=== PATIENT | female | born 1935 | race Caucasian/White ===

== ENCOUNTER 2017-05-27 11:48 | Day surgery (SDC) | payer OTHER, MEDICARE ==
--- NOTE | 2017-05-27 06:18 | PDGENHP ---
History and Physical History and Physical: Assessment and Plan: 1. Urinary incontinence - AMBULATORY REFERRAL TO OBSTETRICS / GYNECOLOGY 2. Genuine stress incontinence, female Colette has straightforward stress urinary incontinence. She leaks quite easily. As a result I would recommend a retropubic sling. 3. Cystocele, lateral Her prolapse is asymptomatic. We will observe things. Subjective: Patient ID: Colette Mayberry is a 81 y.o. female who presents to [facility] for incontinence. HPI Colette is an 81-year-old para 4 woman kindly referred by Awilda Munoz PA-C for urinary incontinence. This has been present for approximately 4 years. She leaks very easily. She leaks with minimal movements and most activities. She also has some urgency. She was told she also has a rectocele. She previously saw Dr. Valdes who thought she had uterine prolapse. They discussed surgical options. Additionally she has noticed a slower urine stream. She has tried pelvic floor strengthening exercises which was not beneficial. PastMedicalHistory Past Medical History: Diagnosis Date Neurologic disorder Urinary tract infection PastSurgicalHistory Past Surgical History: Procedure Laterality Date EYE SURGERY CURRENT MEDICATIONS: Current Outpatient Prescriptions Medication Sig carbidopa-levodopa 25-100 mg per tablet TK 1 T PO TID No current facility-administered medications for this visit. ALLERGIES: Review of patient's allergies indicates not on file. I have reviewed, verified and agree with the past medical, surgical, , family, social and ROS history as documented by the RN today. Objective: Vital Signs: Visit Vitals Pulse 74 Ht 1.62 m (5' 3.78") Wt 53.1 kg (117 lb) SpO2 97% BMI 20.22 kg/m Physical Exam Gen: This is an alert, well developed woman in no distress. Neuro: She moves all extremities. Psych: She is appropriate, oriented, with normal affect. Neck: No thyroid enlargement, adenopathy, or tenderness. Lungs: Clear to ascultation, no wheezes or rales. Heart: Regular rate and rhythm without obvious murmurs. Abdomen: Soft, non-tender, without guarding, rebound, or masses. Extremities: No edema or cyanosis. Pelvic: Normal external genitalia. Cervix without lesions or discharge. Uterus normal sized, mobile, non-tender. Adnexa non-tender without enlargement. The vagina is atrophic. The introitus is gaping especially posteriorly. She has a second almost third-degree cystocele as well as rectocele. The urethra is mobile. She has urine leakage with minimal Valsalva. DATA: I have reviewed the pertinent medical records. TIME/COMMUNICATION: I personally spent a total of 40 minutes. Of that 30 minutes was counseling/ coordination of patient's care. See my note above for details. Ozzie Narayanan MD Board Certified Female Pelvic Medicine and Reconstructive Surgery Director of Minimally Invasive Gynecologic Surgery, [facility] Surgeon in Minimally Invasive Gynecologic Surgery [facility] Surgeon in Robotic Surgery
--- NOTE | 2017-05-27 12:28 | PDANEPAE ---
ANE History of Present Illness 81 yo female with stress incontinence for vaginal sling. ANE Past Medical History - Cardiovascular History Hx Hypertension: No Hx Arrhythmias: No Hx Chest Pain: No Hx Coronary Artery / Peripheral Vascular Disease: No Hx CHF / Valvular Disease: No Hx Palpitations: No - Pulmonary History Hx COPD: No Hx Asthma/Reactive Airway Disease: No Hx Recent Upper Respiratory Infection: No Hx Oxygen in Use at Home: No Hx Sleep Apnea: No Sleep Apnea Screening Result - Last Documented: Negative - Neurologic History Hx Cerebrovascular Accident: Yes Hx Seizures: No Hx Dementia: No Neurologic History Comment: TIA 2007 - no residual deficits. - Endocrine History Hx Diabetes: No Hypothyroid: No Obesity: no - Renal History Hx Renal Disorders: Yes Renal History Comment: stress incontinence. hx of uti's - Liver History Hx Hepatic Disorders: No - Neurological & Psychiatric Hx Hx Neurological and Psychiatric Disorders: No - Cancer History Hx Cancer: No - Congenital Disorder History Hx Congenital Disorders: No - GI History GERD: mild Hx Gastrointestinal Disorders: No Gastrointestinal History Comment: dependent on food consumed - Other Health History Other Health History: wears glasses. [place]- no aides yet. arthritis - Chronic Pain History Chronic Pain: No (generalized arthritic pain) - Surgical History Prior Surgeries: yag laser with [place]. previous corneal surgery in [place] ANE Review of Systems Review of systems is: negative Review of Systems: - Exercise capacity METS (RN): 4 METS ANE Patient History - Allergies Allergies/Adverse Reactions: No Known Allergies Allergy (Verified 05/06/17 16:41) - Home Medications Home Medications: Carbidopa/Levodopa 05/06/17 [Last Taken Unknown] Herbals/Supplements -Info Only 05/06/17 [Last Taken Unknown] - NPO status NPO Since - Liquids (Date): 05/27/17 NPO Since - Liquids (Time): 06:00 (water with meds) NPO Since - Solids (Date): 05/26/17 - Anes Hx Anes Hx: no prior problems - Smoking Hx Smoking Status: Former smoker - Alcohol Use Alcohol Use: Rarely - Family Anes Hx Family Anes Hx: neg - N/A Family Hx Anesthesia Complications: none ANE Labs/Vital Signs - Vital Signs Vital Signs: reviewed preoperatively; see RN documention for details Height: 162 cm Weight: 53.1 kg ANE Physical Exam - Airway Mallampati Score: Class 2 Mouth exam: small mouth opening - Pulmonary Pulmonary: clear to auscultation - Cardiovascular Cardiovascular: regular rate and rhythym - ASA Status ASA Status: II ANE Anesthesia Plan Anesthesia Plan: GA w LMA
--- NOTE | 2017-05-27 12:33 | PDHPUP ---
History & Physical Update H&P update statement: This history and physical update is based on an assessment of the patient which was completed after admission or registration (within 24 hours), but prior to the surgery/procedure. H&P update: H&P reviewed & patient examined, no change in patient's condition since H&P completed
[2017-05-27] MEDS ORDERED: BUPIVACAINE/EPI 0.5% 30 ML SDV ONE (12:39)
[2017-05-27] MEDS ORDERED: LIDOCAINE 2% 5 ML SDV ONE (12:44)
[2017-05-27] MEDS ORDERED: DEXAMETHASONE 4 MG/ML VIAL ONE (12:44)
[2017-05-27] MEDS ORDERED: PROPOFOL 200 MG/20 ML VIAL ONE (12:45)
[2017-05-27] MEDS ORDERED: ceFAZolin 2 GM/SWFI 20 ML SYR IVP ONE (12:45)
[2017-05-27] MEDS ORDERED: ceFAZolin 2 GM/SWFI 2 GM/20 ML SYR IVP ONE (12:45)
[2017-05-27] MEDS ORDERED: fentaNYL 100 MCG/2 ML INJ ONE (12:45)
[2017-05-27 13:02] VITALS: PULSE 71
[2017-05-27] MEDS ORDERED: LIDOCAINE 1% 2 ML INJ ID PRN (13:03)
[2017-05-27] MEDS ORDERED: LR 1,000 ML IV ONE (13:03)
[2017-05-27] MEDS ORDERED: NALOXONE HCL 0.4 MG/ML INJ IVP PRN (13:23)
[2017-05-27] MEDS ORDERED: HYDROCODONE/APAP 5/325 TAB PO PRN (13:23)
[2017-05-27] MEDS ORDERED: ACETAMINOPHEN 500 MG TAB PO PRN (13:23)
[2017-05-27] MEDS ORDERED: LR 500 ML IV PRN (13:23)
[2017-05-27] MEDS ORDERED: ONDANSETRON 4 MG/2 ML VIAL IVP PRN (13:23)
[2017-05-27] MEDS ORDERED: fentaNYL 100 MCG/2 ML INJ IVP PRN (13:23)
--- NOTE | 2017-05-27 13:33 | POSTOPPROG ---
Post Op Note Date of Operation: 05/27/17 Surgeon: Ozzie Narayanan Inside Plant Supervisor: none Anesthesiologist: urvashi Anesthesia: GET(General Endotracheal) Pre-op Diagnosis: stress incontinence Post-op Diagnosis: same Procedure: retropubic sling Findings: no bladder or urethral injury Inf/Abcess present in the surg proc area at time of surgery?: No EBL: Minimal Complications: none
--- NOTE | 2017-05-27 13:37 | POSTANESTH ---
Post Anesthetic Evaluation Cardiovascular Status: Normal, Stable Respiratory Status: Normal, Stable Level of Consciousness/Mental Status: Can Participate in Eval, Mildly Sleepy, Arousable Pain Control: Adequate, Prn Tx Ordered Nausea/Vomiting Control: Adequate, Prn Tx Ordered Complications Possibly Related to Anesthesia: None Noted
[2017-05-27 15:12] VITALS: TEMP 97.5
[2017-05-27 15:29] VITALS: RESP 16
[2017-05-27 16:32] VITALS: BP 165/86; O2SAT 95
--- NOTE | 2017-05-27 21:40 | GOP ---
[f rep st] OPERATIVE REPORT DATE OF OPERATION: 05/27/2017 SURGEON: Ozzie Narayanan MD LICENSED PROSTHETIST/ORTHOTIST: None. ANESTHESIA: General. PREOPERATIVE DIAGNOSIS: Stress urinary incontinence. POSTOPERATIVE DIAGNOSIS: Stress urinary incontinence. PROCEDURE PERFORMED: 1. Retropubic sling. 2. Cystoscopy. FINDINGS: SPECIMENS: None. ESTIMATED BLOOD LOSS: Scant. DESCRIPTION OF PROCEDURE: The patient was taken to the operating room, where she was identified. General anesthesia was administered and found to be adequate. She was placed in the lithotomy and prepared and draped in normal sterile fashion. A Lara catheter was placed in the bladder. A mid urethral incision was made with a scalpel. Tunnels were created bilaterally around the urethra toward the space of Retzius. The retropubic trocar with the sling attached was advanced through the left tunnel, redirected around the pubic symphysis and out through a suprapubic stab incision. The exact same procedure was performed on the patient's right side. Cystoscopy was then performed. No evidence of bladder injury nor urethral injury was seen. No obvious pathology was seen. The sling was then adjusted to allow a small mid urethral gap. The vaginal incision was closed with 2-0 Vicryl, skin with 4-0 Monocryl. Anesthesia was reversed, and the patient taken to the PACU awake and in stable condition. COMPLICATIONS: None. DISPOSITION: Patient stable to PACU. /[id number]/MODL MTDD
== END 2017-05-27 16:31 | disposition home or self-care (01) ==
LOC: FSGY 11:48
PROVIDERS: ATTEND Obstetrics & Gynecology
PROC: 0TUD0JZ Supplement Urethra with Synthetic Substitute, Open Approach (ICD-10-PCS; principal; 2017-05-27 13:00)
PROC: 0TJB0ZZ Inspection of Bladder, Open Approach (ICD-10-PCS; principal; 2017-05-27 13:00)
PROC: 0TJ Urinary System, Inspection (ICD-10-PCS; principal; 2017-05-27 13:00)
DX: N39.3 Stress incontinence (female) (male) (principal); E78.00 Pure hypercholesterolemia, unspecified; G20 Parkinson's disease; M81.0 Age-related osteoporosis without current pathological fracture
CPT/HCPCS: C1771; J0690; J1100; J2704; J3010